=== PATIENT | female | born 1990 | race Caucasian/White ===

== ENCOUNTER 2018-01-05 21:50 | Emergency (ER) | payer BC, OTHER ==
[~2018-01-05] VITALS: Ht 162.6 cm; Wt 77.1 kg
[2018-01-05 22:52] VITALS: BP 133/80
[2018-01-05] MEDS ORDERED: AMOXICILLIN/CLAVUL 875 MG TAB PO ONE (23:30)
[2018-01-05] MEDS ORDERED: cefTRIAXone SOD 1,000 MG VL IM ONE (23:30)
[2018-01-05] MEDS ORDERED: TETANUS-DIPTH-ACEL PERTUSSIS 0.5ML SYRG IM ONE (23:30)
== END 2018-01-06 00:52 | disposition home or self-care (01) ==
LOC: ER 21:50
DX: S61.411A Laceration without foreign body of right hand, initial encounter (principal); W54.0XXA Bitten by dog, initial encounter; Y93.89 Activity, other specified; Y92.89 Other specified places as the place of occurrence of the external cause; Y99.8 Other external cause status
CPT/HCPCS: 12002; 73120; 90471; 90715; 96372; 99284; J0696